=== PATIENT | female | born 1965 | race Two or more races ===

== ENCOUNTER 2024-12-05 18:09 | Emergency (ER) | payer MEDICAID, SELFPAY ==
[2024-12-05 19:15] VITALS: BP 132/70; PULSE 88; RESP 18; TEMP 36.9; O2SAT 99
--- NOTE | 2024-12-05 19:15 | PD.EDANKLE ---
Lower Extremity Injury RME/HPI General Chief Complaint: Ankle/Foot Injury Stated Complaint: LEFT FOOT PAIN Time Seen by Provider: 12/05/24 18:36 Source: patient, RN notes reviewed and old records reviewed Arrival date/time: 12/05/24 18:09 Mode of arrival: ambulatory Limitations: no limitations RME / HPI RME / HPI Narrative: 59yof presents to ED for 2-week history of left lower back pain radiating down LLE. No preceding injury/trauma or fall. Patient reports increased pain with ROM, bearing weight and ambulation. No fever, N/V, abdominal pain, flank pain, urinary symptoms, LE weakness, numbness/tingling or bowel/bladder incontinence reported. Patient has taken Tylenol intermittently with minimal relief. Related Data Home Medications ?Medication ?Instructions ?Recorded ?Confirmed loratadine 10 mg tablet 10 mg PO QDAY 10/03/18 03/01/19 lisinopril 10 1 tab PO QDAY 03/01/19 03/01/19 mg-hydrochlorothiazide 12.5 mg tablet sulfamethoxazole 800 1 tab PO BID 03/01/19 03/01/19 mg-trimethoprim 160 mg tablet (Bactrim DS) Previous Rx's ?Medication ?Instructions ?Recorded naproxen 500 mg tablet (Naprosyn) 500 mg PO BID PRN pain #20 tabs 12/04/18 ibuprofen 600 mg tablet 600 mg PO Q8H PRN fever or pain 03/02/19 #30 tabs famotidine 20 mg tablet 20 mg PO QDAY #30 tabs 09/11/21 acetaminophen 500 mg tablet 1,000 mg (2 x 500 mg) PO QID PRN 12/18/21 (Tylenol Extra Strength) fever or pain #30 tabs albuterol sulfate 90 mcg/actuation 1 puff inhalation QID PRN 08/25/22 aerosol inhaler (Proventil HFA) shortness of breath or wheezing #8.5 grams naproxen 500 mg tablet (Naprosyn) 500 mg PO BID #30 tabs 12/06/22 naproxen 500 mg tablet 500 mg PO BID #14 tabs 03/04/23 azithromycin 250 mg tablet See Rx Instructions PO .COMPLEX #6 11/04/23 tabs benzonatate 150 mg capsule 150 mg PO BID PRN cough #30 caps 11/04/23 hydroxyzine HCl 10 mg tablet 10 mg PO TID PRN itching #10 tabs 02/06/24 ibuprofen 600 mg tablet 600 mg PO Q6H PRN pain #30 tabs 12/05/24 methocarbamol 500 mg tablet 1,000 mg (2 x 500 mg) PO Q8H PRN 12/05/24 pain #30 tabs methylprednisolone 4 mg tablets in 4 mg PO QDAY #21 tabs 12/05/24 a dose pack (Medrol (John)) Allergies Allergy/AdvReac Type Severity Reaction Status Date / Time No Known Allergies Allergy Verified 12/05/24 18:12 Review of Systems Review of Systems Systems Reviewed: All systems reviewed, normal except as documented Constitutional Constitutional: Denies chills and Denies fever(s) Gastrointestinal Gastrointestinal: Denies abdominal pain, Denies fecal incontinence, Denies nausea and Denies vomiting Genitourinary Genitourinary: Denies urinary incontinence Musculoskeletal Musculoskeletal: Denies arthralgias, Reports back pain, Denies numbness and Denies tingling Neurologic Neurologic: Denies localized weakness, Denies numbness and Denies tingling Past Medical History Past Medical History CARDIAC: Positive Hypertension GASTROINTESTINAL: Positive Obesity MUSCULOSKELETAL: Positive Arthritis Surgical History SURGICAL: Positive Abdominal Surgery, Hysterectomy and Tubal Ligation Social History SMOKING STATUS: Never smoker ED Exam General Limitations: Present no limitations General appearance: Present alert, in no apparent distress and obese Head Head exam: Present atraumatic and normocephalic Eye Eye exam: Present normal appearance, PERRL and EOMI ENT ENT exam: Present normal exam and mucous membranes moist Neck Neck exam: Present normal inspection and full ROM Chest Chest inspection: Present normal inspection and symmetric chest wall rise Respiratory Respiratory exam: Present normal lung sounds bilaterally; Absent respiratory distress Cardiovascular Cardiovascular exam: Present regular rate and normal rhythm Abdominal Exam Abdominal exam: Present soft; Absent distention or tenderness Extremities Exam Extremities exam: Present normal inspection and full ROM; Absent tenderness Back Exam Back exam: Present paraspinal tenderness (Left lumbar); Absent vertebral tenderness Neurological Exam Neurological exam: Present alert, oriented X3, CN II-XII intact, normal gait and other (No saddle anesthesia); Absent motor sensory deficit Psychiatric Psychiatric exam: Present normal affect and normal mood Skin Skin exam: Present warm, dry, intact and normal color Course Quality Measures none Orders Category Date Time Status CYCLObenzaPRINE [Flexeril] Med 12/05/24 19:17 Discontinued 5 mg PO X1 ONE HYDROcodone*/APAP 5/325 [[place] 5/325] Med 12/05/24 19:17 Discontinued 1 tab PO X1 ONE Ketorolac Inj [Toradol Inj] Med 12/05/24 19:17 Discontinued 30 mg IM X1 ONE Vital Signs Vital signs: Vital Signs Temperature 98.5 F 12/05/24 19:15 Pulse Rate 88 12/05/24 19:15 Respiratory Rate 18 12/05/24 19:15 Blood Pressure 132/70 H 12/05/24 19:15 Pulse Oximetry (%) 99 12/05/24 19:15 Oxygen Delivery Method Room Air 12/05/24 19:15 Extremity Injury, Lower MDM Narrative MDM Narrative:: 59yof presents to ED for 2-week history of left lower back pain radiating down LLE. No preceding injury/trauma or fall. Patient reports increased pain with ROM, bearing weight and ambulation. No fever, N/V, abdominal pain, flank pain, urinary symptoms, LE weakness, numbness/tingling or bowel/bladder incontinence reported. Patient has taken Tylenol intermittently with minimal relief. Patient reassessed. Pain improved after medications administered. Patient is neurologically intact, able to ambulate without difficulty. History and exam findings c/w sciatica. Encouraged rest, NSAID, muscle relaxer, ice/heat application prn. Stable for discharge, RTED precautions given. Patient data External records reviewed:: [facility] previous records (05/26/2024 ED visit for headache) Clinical information provided by:: patient Social determinants that could affect healthcare access:: other (specify) (Poor access to healthcare, acculturation difficulty) Patient has the following chronic illnesses:: Obesity, arthritis How is presenting disease/condition affected by chronic disease/condition?: exacerbated by Evaluation data The following diagnostics were reviewed and interpreted by me:: other (specify) (None) Lab and/or radiology exams considered but not ordered:: Lumbar x-rays: No injury/trauma or fall. No midline tenderness. Patient is neurologically intact Interpretation Summary: na Medications / Prescriptions Medications or Prescriptions considered but not ordered:: No antibiotics recommended at this time Medication administrations:: Medication Administration History Discontinued Medications Hydrocodone Bitart/Acetaminophen (Hydrocodone/Apap 5/325 Tablet) 1 tab PO X1 ONE Stop: 12/05/24 19:18 Last Admin: 12/05/24 19:36 Dose: 1 tab Documented By: SR Cyclobenzaprine HCl (Cyclobenzaprine 5 Mg Tablet) 5 mg PO X1 ONE Stop: 12/05/24 19:18 Last Admin: 12/05/24 19:36 Dose: 5 mg Documented By: SR Ketorolac Tromethamine (Ketorolac Inj 60 Mg/2 Ml Vial) 30 mg IM X1 ONE Stop: 12/05/24 19:18 Last Admin: 12/05/24 19:36 Dose: 30 mg Documented By: SR Above medications administered in ED Consultations Consultation(s) initiated? (list below): No Diagnosis Extremity Injury, Lower Differential Diagnosis: other (Back pain, sciatica, lumbar radiculopathy, back strain, MSK pain) Most likely diagnosis given after review of the tests above:: Sciatica on left side Admission Indicated Admission indicated?: not indicated Admission Request Was there a request for admission?: No Disposition Plan Disposition Plan: Discharge Discharge Attestation Discharge Attestation: The patient and all family members were given an opportunity to ask questions and understood the discharge instructions. Discharge instructions specifically effects, indications for sooner follow up or return to the emergency department, and the expected course of current diagnosis. Patient condition: Stable Discharge Plan Plan Patient Disposition: HOME (Self Care) Patient condition on transfer: Stable Prescriptions/Referrals Prescriptions/Med Rec: New ibuprofen 600 mg tablet 600 mg PO Q6H PRN (Reason: pain) Qty: 30 0RF methocarbamol 500 mg tablet 1,000 mg PO Q8H PRN (Reason: pain) Qty: 30 0RF methylprednisolone [Medrol (John)] 4 mg tablets,dose pack 4 mg PO QDAY Qty: 21 0RF No Action loratadine 10 mg Tablet 10 mg PO QDAY naproxen [Naprosyn] 500 mg tablet 500 mg PO BID PRN (Reason: pain) Qty: 20 0RF sulfamethoxazole-trimethoprim [Bactrim DS] 800-160 mg Tablet 1 tab PO BID Rx Instructions: STARTED 02/22/19 lisinopril-hydrochlorothiazide 10-12.5 mg Tablet 1 tab PO QDAY ibuprofen 600 mg tablet 600 mg PO Q8H PRN (Reason: fever or pain) Qty: 30 0RF famotidine 20 mg tablet 20 mg PO QDAY Qty: 30 0RF acetaminophen [Tylenol Extra Strength] 500 mg tablet 1,000 mg PO QID PRN (Reason: fever or pain) Qty: 30 0RF albuterol sulfate [Proventil HFA] 90 mcg/actuation HFA aerosol inhaler 1 puff inhalation QID PRN (Reason: shortness of breath or wheezing) Qty: 8.5 0RF naproxen [Naprosyn] 500 mg tablet 500 mg PO BID Qty: 30 0RF naproxen 500 mg tablet 500 mg PO BID Qty: 14 0RF hydroxyzine HCl 10 mg tablet 10 mg PO TID PRN (Reason: itching) Qty: 10 0RF benzonatate 150 mg capsule 150 mg PO BID PRN (Reason: cough) Qty: 30 0RF azithromycin 250 mg tablet See Rx Instructions .ROUTE .COMPLEX Qty: 6 0RF Rx Instructions: For 250 mg dose pack: take 500 mg today (day 1), then 250 mg for 4 days (days 2-5) Referrals: No Primary/Family,Physician [Primary Care Provider] - In 1 week Problem List Clinical Impression: Left sided sciatica Patient/Caregiver Discharge Instructions Education Materials: ED Sciatica Print Language: Burundian Stand Alone Forms: Amanda Award Info., Patient Portal Info Letter PA/ESCROW CLERK Supervising Physician PA/ESCROW CLERK Supervising Physician: Daisha
[2024-12-05] MEDS: CYCLObenzaPRINE 5 MG TABLET PO (19:36)
[2024-12-05] MEDS: KETOROLAC INJ 60 MG/2 ML VIAL 30 MG IM (19:36)
[2024-12-05] MEDS: HYDROcodone/APAP 5/325 TABLET 1 TAB PO (19:36)
== END 2024-12-05 20:38 | disposition home or self-care (01) ==
PROVIDERS: Emergency Provider Emergency Medicine
DX: M54.42 Lumbago with sciatica, left side (principal)
CPT/HCPCS: 96372; 99283; J1885; A9270

== ENCOUNTER → 2024-12-13 | Outpatient (CLI) | payer MEDICAID, SELFPAY ==
--- NOTE | 2024-12-13 | XR_ITS ---
Examination: Left os calcis 2 views TECHNIQUE: Axial lateral left os calcis 2 views Exam date and time: December 13, 2024 0806 hours INDICATIONS: Left heel pain 3 weeks. FINDINGS: 3.5 mm plantar bony calcaneal spur No fracture or cortical bone destruction IMPRESSION: 3.5 mm plantar bony calcaneal spur
== END | disposition home or self-care (01) ==
LOC: CDIM 07:38
PROVIDERS: PCP Internal Medicine; Referring Provider Internal Medicine; Visit Provider Internal Medicine
DX: M77.32 Calcaneal spur, left foot (principal)
CPT/HCPCS: 73650

== ENCOUNTER 2025-04-28 12:46 | Emergency (ER) | payer MEDICAID, SELFPAY ==
[2025-04-28 13:08] VITALS: BP 151/82; PULSE 80; RESP 18; TEMP 37.4; O2SAT 96
--- NOTE | 2025-04-28 13:27 | PD.EDRME ---
Rapid Medical Screening Exam RME Arrival date/time: 04/28/25 12:46 This is a 60-year-old female that comes into the emergency room with complaints of dysuria and lower abdominal pain that started a couple days ago. patient states she also feels some generalized weakness. Patient also complains of some mild nausea. Patient has a history of high blood pressure. I have greeted and performed a focused initial assessment of this patient. Initial appropriate labs ordered at this time. A comprehensive ED assessment and evaluation of the patient and analysis of all test and completion of medical decision making process will be conducted by additional ED provider. Chief Complaint: Urogenital-Female Time Seen by Provider: 04/28/25 12:53 Vital signs: Vital Signs Temperature 99.4 F 04/28/25 13:08 Pulse Rate 80 04/28/25 13:08 Respiratory Rate 18 04/28/25 13:08 Blood Pressure 151/82 H 04/28/25 13:08 Pulse Oximetry (%) 96 04/28/25 13:08 Oxygen Delivery Method Room Air 04/28/25 13:08
[2025-04-28 13:38] LABS: Collection Type, Urine Voided; Squamous Epithelial Cell,Urine 0 /hpf (0-5)
[2025-04-28 13:45] LABS: Bilirubin,Urine Negative (Negative); Blood,Urine Negative (Negative); Clarity,Urine Clear (Clear/Hazy); Color,Urine Colorless (Lt Yel-Yel); Culture Indicated,Urine Not Indicated; Glucose, Urine Negative (Negative); Ketones,Urine Negative (Negative); Leukocyte Esterase,Urine Negative (Negative); Nitrite,Urine Negative (Negative); PH,Urine 6.5 (5.0-7.0); Protein,Urine Negative (Neg - Trace); RBC,Urine < 1 /hpf (0-3); Specific Gravity,Urine 1.007 (1.001-1.035); Urobilinogen,Urine Negative mg/dL (0.0-1.0); WBC,Urine < 1 /hpf (0-5)
[2025-04-28 14:46] LABS: Basophils # (Auto) 0.0 Thou/mm3 (0.0-0.2); Basophils % (Auto) 1 % (0-2.5); Eosinophils # (Auto) 0.0 Thou/mm3 (0.0-0.5); Eosinophils % (Auto) 0 % (0-10); Hematocrit 40.8 % (36.0-46.0); Hemoglobin 13.1 g/dL (12.0-16.0); Immature Granulocytes Auto 0.02 Thou/mm3 (0.00-0.00); Lymphocytes # (Auto) 1.3 Thou/mm3 (1.0-4.8); Lymphocytes % (Auto) 20 % (10-50); Mean Corpuscular HGB Conc 32.1 g/dl (31.0-37.0); Mean Corpuscular Hemoglobin 26.6 pg (25.0-35.0); Mean Corpuscular Volume 83 fL (80-100); Monocytes # (Auto) 0.5 Thou/mm3 (0.0-0.8); Monocytes % (Auto) 7 % (0-12); Neutrophils # (Auto) 4.8 Thou/mm3 (1.8-7.7); Neutrophils % (Auto) 72 % (37-80); Nucleated Red Blood Cell # 0.00 Thou/mm3 (0.00-0.00); Nucleated Red Blood Cell % 0 /100 WBC (0); Platelet Count 257 Thou/mm3 (140-440); RDW Standard Deviation 41.8 fL (36.4-46.3); Red Blood Count 4.93 Miln/mm3 (4.00-5.20); White Blood Count 6.6 Thou/mm3 (3.6-11.0)
[2025-04-28 15:22] LABS: Alanine Aminotransferase 34 U/L (10-49); Albumin, Serum 4.6 gm/dL (3.4-4.8); Albumin/Globulin Ratio 2.0 (1.2-2.2); Alkaline Phosphatase 75 U/L (46-116); Anion Gap 10 (7-16); Aspartate Amino Transferase 27 U/L (0-34); BUN/Creatinine Ratio 27 Ratio (12-20); Bilirubin,Total 0.5 mg/dL (0.3-1.2); Blood Urea Nitrogen 16 mg/dL (9-23); Calcium 10.0 mg/dL (8.3-10.6); Calcium (Corrected) 10.0 mg/dL (8.5-10.1); Carbon Dioxide 28.1 mMol/L (20.0-31.0); Chloride 106 mMol/L (98-107); Creatinine (Component) 0.6 mg/dL (0.6-1.3); Globulin 2.3 gm/dL (2.3-3.5); Glucose 114 mg/dL (74-106); Lipase 40 U/L (12-53); Osmolality,Calculated 289 (275-295); Potassium 3.7 mMol/L (3.4-5.1); Sodium 144 mMol/L (136-145); Total Protein 6.9 gm/dL (5.7-8.2); eGFR > 60 See Note
--- NOTE | 2025-04-28 16:07 | PD.EDFMALE ---
ED Female Urogenital RME/HPI General Chief complaint: Urogenital-Female Stated complaint: Burning with urination X 3 days, nausea Time Seen by Provider: 04/28/25 12:53 Arrival date/time: 04/28/25 12:46 RME / HPI RME / HPI Narrative: 60-year-old female patient came in for evaluation regarding epigastric pain, described as dull ache, severity moderate. Patient also complaining of burning with urination, especially if the urine touches her vaginal wall. Also complaining of itchiness and erythema. Denies any fever denies any vomiting denies any other complaints. Related Data Home Medications ?Medication ?Instructions ?Recorded ?Confirmed loratadine 10 mg tablet 10 mg PO QDAY 10/03/18 03/01/19 lisinopril 10 1 tab PO QDAY 03/01/19 03/01/19 mg-hydrochlorothiazide 12.5 mg tablet sulfamethoxazole 800 1 tab PO BID 03/01/19 03/01/19 mg-trimethoprim 160 mg tablet (Bactrim DS) Previous Rx's ?Medication ?Instructions ?Recorded naproxen 500 mg tablet (Naprosyn) 500 mg PO BID PRN pain #20 tabs 12/04/18 ibuprofen 600 mg tablet 600 mg PO Q8H PRN fever or pain 03/02/19 #30 tabs famotidine 20 mg tablet 20 mg PO QDAY #30 tabs 09/11/21 acetaminophen 500 mg tablet 1,000 mg (2 x 500 mg) PO QID PRN 12/18/21 (Tylenol Extra Strength) fever or pain #30 tabs albuterol sulfate 90 mcg/actuation 1 puff inhalation QID PRN 08/25/22 aerosol inhaler (Proventil HFA) shortness of breath or wheezing #8.5 grams naproxen 500 mg tablet (Naprosyn) 500 mg PO BID #30 tabs 12/06/22 naproxen 500 mg tablet 500 mg PO BID #14 tabs 03/04/23 azithromycin 250 mg tablet See Rx Instructions PO .COMPLEX #6 11/04/23 tabs benzonatate 150 mg capsule 150 mg PO BID PRN cough #30 caps 11/04/23 hydroxyzine HCl 10 mg tablet 10 mg PO TID PRN itching #10 tabs 02/06/24 ibuprofen 600 mg tablet 600 mg PO Q6H PRN pain #30 tabs 12/05/24 methocarbamol 500 mg tablet 1,000 mg (2 x 500 mg) PO Q8H PRN 12/05/24 pain #30 tabs methylprednisolone 4 mg tablets in 4 mg PO QDAY #21 tabs 12/05/24 a dose pack (Medrol (John)) nystatin-triamcinolone 100,000 1 applic topical BID 7 days #30 04/28/25 unit/g-0.1 % topical cream grams pantoprazole 40 mg tablet,delayed 40 mg PO QDAY #20 tabs 04/28/25 release (Protonix) Allergies Allergy/AdvReac Type Severity Reaction Status Date / Time No Known Allergies Allergy Verified 04/28/25 12:52 Review of Systems Review of Systems Narrative Review of Systems: Review of system reviewed and within normal limits except mentioned in HPI ED Exam Narrative Physical exam: VITAL SIGNS: Reviewed. GENERAL APPEARANCE: Alert and interactive, follows commands, no acute distress, HEAD AND FACE: Non-traumatic. ENT: PERRL, pink conjunctivitis, eyelid no trauma, Mucous membrane moist. NECK: Supple, nontender, no nuchal rigidity. CHEST: No tenderness, no crepitus, no paradoxical movement, no retractions. LUNGS: Clear, well ventilated, symmetric, no rales, no wheezing, no ronchi, no stridor, good breath sounds bilaterally. HEART: Regular rate, regular rhythm, no murmur, no gallops. ABDOMEN: Soft, positive bowel sounds, nondistended, no guarding, nontender, no rebound, no masses, RECTAL: Deferred. GENITAL: Refused pelvic exam NEUROLOGICAL: Gross motor function intact sensory function intact, Appropriate for age. MUSCULOSKELETAL: low back nontender, full range of motion. EXTREMITIES: Nontender, full range of motion. SKIN: Color pink, dry, no rash, no lacerations, no abrasions, no contusions. LYMPHATICS: Deferred. Course Quality Measures none Orders Category Date Time Status CBC Stat Lab 04/28/25 14:24 Completed Comprehensive Metabolic Panel Stat Lab 04/28/25 14:24 Completed Lipase Stat Lab 04/28/25 14:24 Completed Urinalysis, C/S if Indicated Stat Lab 04/28/25 13:26 Completed Vital Signs Vital signs: Vital Signs Temperature 99.4 F 04/28/25 13:08 Pulse Rate 80 04/28/25 13:08 Respiratory Rate 18 04/28/25 13:08 Blood Pressure 151/82 H 04/28/25 13:08 Pulse Oximetry (%) 96 04/28/25 13:08 Oxygen Delivery Method Room Air 04/28/25 13:08 Urogenital - Female [facility] Narrative [facility] Narrative:: 60-year-old female patient came in for evaluation regarding epigastric pain, described as dull ache, severity moderate. Patient also complaining of burning with urination, especially if the urine touches her vaginal wall. Also complaining of itchiness and erythema. Denies any fever denies any vomiting denies any other complaints. Laboratory workup all came back normal including normal urinalysis. I did not look at her vagina because patient does not want to be examined. However I decided to send this patient home on antifungal cream Patient appears nontoxic and hemodynamically stable .Decision to discharge the patient. The patient/family was given an opportunity to ask questions and understood their discharge instructions. Discharge instructions specifically included follow up provider and time frame, current and/or new medications and possible side effects, indications for sooner follow up or return to the emergency department, and the expected course of current diagnosis. Patient reports feeling better as well and giving evidence of significant clinical improvement, I believe patient is now a candidate for discharge. Patient data External records reviewed:: None Clinical information provided by:: patient Social determinants that could affect healthcare access:: none Patient has the following chronic illnesses:: None How is presenting disease/condition affected by chronic disease/condition?: no chronic disease Evaluation data The following diagnostics were reviewed and interpreted by me:: lab results Lab and/or radiology exams considered but not ordered:: None Interpretation Summary: See results [facility] Medications / Prescriptions Medications or Prescriptions considered but not ordered:: None Medication administrations:: None Consultations Consultation(s) initiated? (list below): No Diagnosis Urogenital Female Differential Diagnosis: urinary tract infection and cystitis Most likely diagnosis given after review of the tests above:: vaginal irritation, gastritis Admission Indicated Admission indicated?: not indicated Admission Request Was there a request for admission?: No Disposition Plan Disposition Plan: Discharge Discharge Attestation Discharge Attestation: The patient and all family members were given an opportunity to ask questions and understood the discharge instructions. Discharge instructions specifically effects, indications for sooner follow up or return to the emergency department, and the expected course of current diagnosis. Patient condition: Stable Discharge Plan Plan Patient Disposition: HOME (Self Care) Discharge Disposition comment: stable Prescriptions/Referrals Prescriptions/Med Rec: New nystatin-triamcinolone 100,000-0.1 unit/g-% cream 1 applic topical BID 7 Days Qty: 30 0RF pantoprazole [Protonix] 40 mg tablet,delayed release (DR/EC) 40 mg PO QDAY Qty: 20 0RF No Action loratadine 10 mg Tablet 10 mg PO QDAY naproxen [Naprosyn] 500 mg tablet 500 mg PO BID PRN (Reason: pain) Qty: 20 0RF sulfamethoxazole-trimethoprim [Bactrim DS] 800-160 mg Tablet 1 tab PO BID Rx Instructions: STARTED 02/22/19 lisinopril-hydrochlorothiazide 10-12.5 mg Tablet 1 tab PO QDAY ibuprofen 600 mg tablet 600 mg PO Q8H PRN (Reason: fever or pain) Qty: 30 0RF famotidine 20 mg tablet 20 mg PO QDAY Qty: 30 0RF acetaminophen [Tylenol Extra Strength] 500 mg tablet 1,000 mg PO QID PRN (Reason: fever or pain) Qty: 30 0RF albuterol sulfate [Proventil HFA] 90 mcg/actuation HFA aerosol inhaler 1 puff inhalation QID PRN (Reason: shortness of breath or wheezing) Qty: 8.5 0RF naproxen [Naprosyn] 500 mg tablet 500 mg PO BID Qty: 30 0RF naproxen 500 mg tablet 500 mg PO BID Qty: 14 0RF hydroxyzine HCl 10 mg tablet 10 mg PO TID PRN (Reason: itching) Qty: 10 0RF ibuprofen 600 mg tablet 600 mg PO Q6H PRN (Reason: pain) Qty: 30 0RF methocarbamol 500 mg tablet 1,000 mg PO Q8H PRN (Reason: pain) Qty: 30 0RF methylprednisolone [Medrol (John)] 4 mg tablets,dose pack 4 mg PO QDAY Qty: 21 0RF benzonatate 150 mg capsule 150 mg PO BID PRN (Reason: cough) Qty: 30 0RF azithromycin 250 mg tablet See Rx Instructions .ROUTE .COMPLEX Qty: 6 0RF Rx Instructions: For 250 mg dose pack: take 500 mg today (day 1), then 250 mg for 4 days (days 2-5) Referrals: Angela Madrid FNP-C [Primary Care Provider] - In 1 week Problem List Clinical Impression: Gastritis, Vaginal irritation Patient/Caregiver Discharge Instructions Discharge Activity: activity as tolerated Education Materials: ED Gastritis (Adult) Additional Instructions: Thank you for the opportunity for serving you today. You are stable for discharged . You are advised to: Follow-up with your PCP in 1 to 2 days Return to ED for worsening of symptoms Increase oral fluids Take medication as prescribed Print Language: Kazakh Stand Alone Forms: Amanda Award Info., Patient Portal Info Letter PA/LORENA Supervising Physician REMI/LORENA Supervising Physician: MD Leonel
== END 2025-04-28 18:23 | disposition home or self-care (01) ==
PROVIDERS: Nurse Practitioner Family; Emergency Provider Emergency Medicine; PCP Nurse Practitioner Family
DX: K29.70 Gastritis, unspecified, without bleeding (principal); N89.8 Other specified noninflammatory disorders of vagina
CPT/HCPCS: 36415; 80053; 81001; 83690; 85025; 99283

== ENCOUNTER → 2025-05-02 | Outpatient (CLI) | payer MEDICAID, SELFPAY ==
--- NOTE | 2025-05-02 15:45 | XR_ITS ---
Examination: Screening digital mammography, bilateral Computer aided detection 3-D breast Tomosynthesis, bilateral Date and time of exam: May 02, 2025 1537 hours Compared to mammograms dating to August 26, 2011 Indication: Screening Technique: Nonmagnified MLO, CC views of the breasts to been obtained, reconstructed from 3-D Tomosynthesis images. R2 computer aided detection program utilized for evaluation of suspicious masses and/or abnormal calcifications. 3-D Tomosynthesis images obtained. Findings: The breasts are heterogeneously dense, which may obscure small masses Benign calcifications No interval suspicious masses Impression: BI-RADS category II: Benign Findings. Recommend 1 year follow-up mammogram.
== END | disposition home or self-care (01) ==
PROVIDERS: Referring Provider Nurse Practitioner Family; Visit Provider Nurse Practitioner Family
DX: Z12.31 Encounter for screening mammogram for malignant neoplasm of breast (principal); R92.323 Mammographic fibroglandular density, bilateral breasts; R92.1 Mammographic calcification found on diagnostic imaging of breast
CPT/HCPCS: 77063; 77067

== ENCOUNTER 2025-08-30 18:59 | Emergency (ER) | payer MEDICAID, SELFPAY ==
[2025-08-30 19:53] VITALS: BP 152/77; PULSE 88; RESP 18; TEMP 37.5; O2SAT 96; BMI 27.8
--- NOTE | 2025-08-30 20:12 | XR_ITS ---
EXAMINATION: PA chest single view TECHNIQUE: Upright PA chest single view Date and time: August 30, 2025, 2115 hours INDICATIONS: Chest pain today. FINDINGS: Early bibasilar pneumonia Normal heart size Intact osseous structures IMPRESSION: Early bibasilar pneumonia
--- NOTE | 2025-08-30 20:23 | EDNOTE_ITS ---
Upper Respiratory Inf. RME/HPI General Chief Complaint: Dental/Oral/Throat Stated Complaint: TONSIL PAIN COUGH Time Seen by Provider: 08/30/25 20:12 Arrival date/time: 08/30/25 18:59 60F with history of HTN presents to ED with several days of sore throat, cough, and some CP when coughing. Patient denies SOB. Limitations: no limitations Related Data Home Medications ?Medication ?Instructions ?Recorded ?Confirmed loratadine 10 mg tablet 10 mg PO QDAY 10/03/1803/01 lisinopril 10 1 tab PO QDAY 03/01/1903/01 mg-hydrochlorothiazide 12.5 mg tablet sulfamethoxazole 800 1 tab PO BID 03/01/19 mg-trimethoprim 160 mg tablet (Bactrim DS) Previous Rx's ?Medication ?Instructions ?Recorded naproxen 500 mg tablet (Naprosyn) 500 mg PO BID PRN pa in #20 tabs 12/04/18 ibuprofen 600 mg tablet 600 mg PO Q8H PRN fever or p ain 03/02/19 #30 tabs famotidine 20 mg tablet 20 mg PO QDAY #30 tabs 09/11 acetaminophen 500 mg tablet 1,000 mg (2 x 500 mg) PO Q ID PRN 12/18/21 (Tylenol Extra Strength) fever or pain #30 tabs albuterol sulfate 90 mcg/actuation 1 puff inhalation Q ID PRN 08/25/22 aerosol inhaler (Proventil HFA) shortness of breath or wheezing #8.5 grams naproxen 500 mg tablet (Naprosyn) 500 mg PO BID #30 ta bs 12/06/22 naproxen 500 mg tablet 500 mg PO BID #14 tabs 03/04 azithromycin 250 mg tablet See Rx Instructions PO .COM PLEX #6 11/04/23 tabs benzonatate 150 mg capsule 150 mg PO BID PRN cough #30 caps 11/04/23 hydroxyzine HCl 10 mg tablet 10 mg PO TID PRN itching #10 tabs 02/06/24 ibuprofen 600 mg tablet 600 mg PO Q6H PRN pain #30 t abs 12/05/24 methocarbamol 500 mg tablet 1,000 mg (2 x 500 mg) PO Q 8H PRN 12/05/24 pain #30 tabs methylprednisolone 4 mg tablets in 4 mg PO QDAY #21 ta bs 12/05/24 a dose pack (Medrol (John)) pantoprazole 40 mg tablet,delayed 40 mg PO QDAY #20 ta bs 04/28/25 release (Protonix) azithromycin 250 mg tablet See Rx Instructions PO .COM PLEX #6 08/30/25 tabs Allergies Allergy/AdvReac Type Severity Reaction Status Date / Time No Known Allergies Allergy Verified 08/30/25 19:03 Review of Systems Review of Systems Systems Reviewed: All systems reviewed, normal except as documented ENT Ears, Nose, Mouth, and Throat: Reports as per HPI and Reports sore throat Cardiovascular Cardiovascular: Denies dyspnea Respiratory Respiratory: Reports as per HPI, Reports cough, Denies dyspnea and Reports pain with cough Past Medical History Past Medical History NEUROLOGIC: Negative Neurological Disorders or Seizures CARDIAC: Positive Cardiac Disorders and Hypertension; Negative Congestive Heart Failure RESPIRATORY: Negative Chronic Obstructive Pulmonary Disease (COPD) or Asthma GASTROINTESTINAL: Positive Obesity; Negative Gastrointestinal Disorders GENITOURINARY: Negative Genitourinary Disorders or Renal Disease MUSCULOSKELETAL: Positive Musculoskeletal Disorders and Arthritis ENDOCRINE: Negative Endocrine Disorders, Diabetes Mellitus Type 1 or Diabetes Mellitus Type 2 HEMATOLOGIC: Negative Sickle Cell Disease OTHER HISTORY: Negative Blood Transfusions, Blood Transfusion Reaction or Anesthesia Reactions Family History FAMILY HISTORY: Negative Family Cardiac Disorders Surgical History SURGICAL: Positive Abdominal Surgery, Hysterectomy and Tubal Ligation; Negative Cardiac Surgery Social History SMOKING STATUS: Never smoker ED Exam General Limitations: Present no limitations General appearance: Present alert and in no apparent distress Head Head exam: Present atraumatic ENT ENT exam: Present normal exam, normal oropharynx and mucous membranes moist Neck Neck exam: Present normal inspection, full ROM and trachea midline Chest Chest inspection: Present normal inspection and symmetric chest wall rise Respiratory Respiratory exam: Present normal lung sounds bilaterally Neurological Exam Neurological exam: Present alert and oriented X3 Psychiatric Psychiatric exam: Present normal affect and normal mood Skin Skin exam: Present warm, dry, intact and normal color Course Quality Measures none Orders Category Date Time Status Bedside COVID-19 Antigen Test NOW Care 08/30/25 20:12 Active Bedside Influenza A&B Antigen Test NOW Care 08/30/25 20:12 Active XR chest 1V portable Stat Exams 08/30/25 20:12 Completed CBC Stat Lab 08/30/25 20:29 Completed CMP [Comprehensive Metabolic Panel] Stat Lab 08/30/25 20:29 Completed D-Dimer Stat Lab 08/30/25 20:29 Completed Troponin I Stat Lab 08/30/25 20:29 Completed Vital Signs Vital signs: Vital Signs Temperature 99.5 F 08/30/25 19:53 Pulse Rate 88 08/30/25 19:53 Respiratory Rate 18 08/30/25 19:53 Blood Pressure 152/77 H 08/30/25 19:53 Pulse Oximetry (%) 96 08/30/25 19:53 Oxygen Delivery Method Room Air 08/30/25 19:53 O2 at 96% on RA and WNLs Upper Respiratory Infection MDM Narrative MDM Narrative:: 60F with history of HTN presents to ED with several days of sore throat, cough, and some CP when coughing. Patient denies SOB. Physical exam reveals clear lungs and normal WOB. Oropharynx also normal. Patient is afebrile, calm, and alert. No leukocytosis. CMP unremarkable. Swabs neg. Trop and D-dimer normal. CXR mild PNA. Ranch Manager given. Patient data External records reviewed:: [facility] previous records Clinical information provided by:: patient Social determinants that could affect healthcare access:: none Patient has the following chronic illnesses:: HTN How is presenting disease/condition affected by chronic disease/condition?: uneffected by Evaluation data The following diagnostics were reviewed and interpreted by me:: lab results and radiology exam(s) Lab and/or radiology exams considered but not ordered:: ordered Interpretation Summary: above Medications / Prescriptions Medications or Prescriptions considered but not ordered:: not ordered Medication administrations:: n/a Consultations Consultation(s) initiated? (list below): No Diagnosis Upper Respiratory Differential Diagnosis: upper respiratory infection, croup, otitis media, sinusitis, viral infection, bronchitis, influenza, pharyngitis and other (CAP and PE) Most likely diagnosis given after review of the tests above:: CAP Admission Indicated Admission indicated?: not indicated Admission Request Was there a request for admission?: No Disposition Plan Disposition Plan: Discharge Discharge Attestation Discharge Attestation: The patient and all family members were given an opportunity to ask questions and understood the discharge instructions. Discharge instructions specifically effects, indications for sooner follow up or return to the emergency department, and the expected course of current diagnosis. Patient condition: Stable Discharge Plan Plan Patient Disposition: HOME (Self Care) Discharge Disposition comment: Stable Prescriptions/Referrals Prescriptions/Med Rec: New azithromycin 250 mg tablet See Rx Instructions .ROUTE .COMPLEX Qty: 6 0RF Rx Instructions: For 250 mg dose pack: take 500 mg today (day 1), then 250 mg for 4 days (days 2-5) No Action loratadine 10 mg Tablet 10 mg PO QDAY naproxen [Naprosyn] 500 mg tablet 500 mg PO BID PRN (Reason: pain) Qty: 20 0RF sulfamethoxazole-trimethoprim [Bactrim DS] 800-160 mg Tablet 1 tab PO BID Rx Instructions: STARTED 02/22/19 lisinopril-hydrochlorothiazide 10-12.5 mg Tablet 1 tab PO QDAY ibuprofen 600 mg tablet 600 mg PO Q8H PRN (Reason: fever or pain) Qty: 30 0RF famotidine 20 mg tablet 20 mg PO QDAY Qty: 30 0RF acetaminophen [Tylenol Extra Strength] 500 mg tablet 1,000 mg PO QID PRN (Reason: fever or pain) Qty: 30 0RF albuterol sulfate [Proventil HFA] 90 mcg/actuation HFA aerosol inhaler 1 puff inhalation QID PRN (Reason: shortness of breath or wheezing) Qty: 8.5 0RF naproxen [Naprosyn] 500 mg tablet 500 mg PO BID Qty: 30 0RF naproxen 500 mg tablet 500 mg PO BID Qty: 14 0RF hydroxyzine HCl 10 mg tablet 10 mg PO TID PRN (Reason: itching) Qty: 10 0RF ibuprofen 600 mg tablet 600 mg PO Q6H PRN (Reason: pain) Qty: 30 0RF methocarbamol 500 mg tablet 1,000 mg PO Q8H PRN (Reason: pain) Qty: 30 0RF methylprednisolone [Medrol (John)] 4 mg tablets,dose pack 4 mg PO QDAY Qty: 21 0RF benzonatate 150 mg capsule 150 mg PO BID PRN (Reason: cough) Qty: 30 0RF azithromycin 250 mg tablet See Rx Instructions .ROUTE .COMPLEX Qty: 6 0RF Rx Instructions: For 250 mg dose pack: take 500 mg today (day 1), then 250 mg for 4 days (days 2-5) pantoprazole [Protonix] 40 mg tablet,delayed release (DR/EC) 40 mg PO QDAY Qty: 20 0RF Problem List Clinical Impression: CAP (community acquired pneumonia) Patient/Caregiver Discharge Instructions Education Materials: ED Pneumonia (Adult) Additional Instructions: Please follow-up with PCP within 24-48 hours and return immediately if symptoms worsen. Ibuprofen/Tylenol can be used simultaneously for greater fever/pain control. Benadryl is good for cough, congestion, and sleep. Keep hydrated. Advance diet as tolerated. Print Language: Korean Stand Alone Forms: Patient Portal Info Letter PA/CUSTOMER PROGRAM SPECIALIST Supervising Physician PA/CUSTOMER PROGRAM SPECIALIST Supervising Physician: Dr. Quezada
[2025-08-30 20:42] LABS: Basophils # (Auto) 0.0 Thou/mm3 (0.0-0.2); Basophils % (Auto) 0 % (0-2.5); Eosinophils # (Auto) 0.0 Thou/mm3 (0.0-0.5); Eosinophils % (Auto) 0 % (0-10); Hematocrit 37.7 % (36.0-46.0); Hemoglobin 12.9 g/dL (12.0-16.0); Immature Granulocytes Auto 0.02 Thou/mm3 (0.00-0.00); Lymphocytes # (Auto) 1.1 Thou/mm3 (1.0-4.8); Lymphocytes % (Auto) 15 % (10-50); Mean Corpuscular HGB Conc 34.2 g/dl (31.0-37.0); Mean Corpuscular Hemoglobin 27.4 pg (25.0-35.0); Mean Corpuscular Volume 80 fL (80-100); Monocytes # (Auto) 0.8 Thou/mm3 (0.0-0.8); Monocytes % (Auto) 11 % (0-12); Neutrophils # (Auto) 5.4 Thou/mm3 (1.8-7.7); Neutrophils % (Auto) 73 % (37-80); Nucleated Red Blood Cell # 0.00 Thou/mm3 (0.00-0.00); Nucleated Red Blood Cell % 0 /100 WBC (0); Platelet Count 236 Thou/mm3 (140-440); RDW Standard Deviation 41.0 fL (36.4-46.3); Red Blood Count 4.70 Miln/mm3 (4.00-5.20); White Blood Count 7.4 Thou/mm3 (3.6-11.0)
[2025-08-30 20:58] LABS: D-Dimer 323 ng/mL (<600)
[2025-08-30 21:23] LABS: Alanine Aminotransferase 27 U/L (10-49); Albumin, Serum 4.6 gm/dL (3.4-4.8); Albumin/Globulin Ratio 1.6 (1.2-2.2); Alkaline Phosphatase 85 U/L (46-116); Anion Gap 11 (7-16); Aspartate Amino Transferase 28 U/L (0-34); BUN/Creatinine Ratio 13 Ratio (12-20); Bilirubin,Total 0.3 mg/dL (0.3-1.2); Blood Urea Nitrogen 9 mg/dL (9-23); Calcium 9.6 mg/dL (8.3-10.6); Calcium (Corrected) 9.6 mg/dL (8.5-10.1); Carbon Dioxide 27.2 mMol/L (20.0-31.0); Chloride 104 mMol/L (98-107); Creatinine (Component) 0.7 mg/dL (0.6-1.3); Estimated Creatinine Clearance 67.9 mL/min (>60); Globulin 2.9 gm/dL (2.3-3.5); Glucose 143 mg/dL (74-106); Osmolality,Calculated 283 (275-295); Potassium 3.7 mMol/L (3.4-5.1); Sodium 142 mMol/L (136-145); Total Protein 7.5 gm/dL (5.7-8.2); Troponin I < 0.002 ng/mL (0.0-0.045); eGFR > 60 See Note
== END 2025-08-30 22:00 | disposition home or self-care (01) ==
LOC: SERX 22:02
PROVIDERS: Physician Assistant; Emergency Provider Emergency Medicine
DX: J18.9 Pneumonia, unspecified organism (principal)
CPT/HCPCS: 36415; 71045; 80053; 84484; 85025; 85379; 99283